=== PATIENT | male | born 1960 | race Caucasian/White ===

== ENCOUNTER 2022-02-01 15:04 | Observation (INO) ==
--- NOTE | 2022-02-01 15:36 | Emergency Department Note ---
Headache HPI General Chief Complaint: Headache Stated Complaint: headache Time Seen by Provider: 02/01/22 15:17 Mode of arrival: wheelchair History of Present Illness HPI Narrative: 61-year-old male, with past medical history of blindness, CVA, intracranial hemorrhage and as below presents with severe headache for 1 day associated with dizziness. Patient is not vaccinated for COVID. Patient has no chest pain, shortness of breath, abdominal pain, nausea/vomi ting/constipation/diarrhea, fever or chills. Related Data Home Medications Medication Instructions Recorded Confirmed acetaminophen 325 mg tablet 650 mg PO DAILY PRN Headache 01/29/22 02/02/22 famotidine 20 mg tablet 1 tab PO BID 01/29/22 02/02/22 amlodipine 5 mg tablet 1 tab PO QDAY 02/02/22 02/02/22 atorvastatin 40 mg tablet 1 tab PO QDAY 02/02/22 02/02/22 diazepam 5 mg tablet 5 mg PO TIDP PRN anxiety 02/02/22 02/02/22 oxycodone 10 mg tablet 1 tab PO Q4HP PRN Headache 02/02/22 02/02/22 Allergies Allergy/AdvReac Type Severity Reaction Status Date / Time No Known Drug Allergies Allergy Verified 02/02/22 06:50 Review of Systems ROS ROS Narrative: Narrative: All systems ED: reviewed and negative except as stated. FORMERLY [facility], [facility] Narrative Patient History Narrative: Narrative: Medical/Surgical/Family History All Active Problems (Updated 02/01/22 @ 17:04 by Ty Dsouza MD) Rhabdomyolysis (Acute) LULU (acute kidney injury) (Acute) Basilar artery occlusion (Acute) Acute headache (Acute) Occipital cerebral infarction (Acute) Intracranial hemorrhage (Acute) Chronic headache (Acute) Decreased hearing of both ears (Acute) Impacted cerumen of both ears (Acute) Rash and nonspecific skin eruption (Acute) Tachycardia (Acute) Elevated blood pressure reading (Acute) Encounter for examination required by Department of Transportation (DOT) (Acute) Chest pain (Acute) Social History Smoking Status: Current every day smoker Exam Narrative Narrative: Narrative: General General appearance: Present alert and in no apparent distress Head Head: Present atraumatic, normocephalic and other Eye Eye: Present visual dubon intact (Patient is blind in both eyes) Respiratory Respiratory: Present normal lung sounds bilaterally Cardiovascular Cardiovascular: Present regular rate, normal rhythm and normal heart sounds Adbominal Abdominal: Present soft and normal bowel sounds; Absent organomegaly Extremities Extremities: Present normal inspection and full ROM Neurological Neurological: Present alert, oriented X3 and normal gait; Absent motor sensory deficit Course Course Course Narrative: A CT scan of head without contrast was ordered. CBC, chemistry, PT, PTT, UA, an d COVID test was ordered. CT scan head c/[facility] NAME: Paul Kaplan [address] [place] [address] : 1960 [address] Service Date: 02/01/22 Report # [id number] [place] [address] Santo Obando M.D. MR #: [id number] Cat Scan Report Signed Ordering Physician:Ty Dsouza M.D. Date of Service:02/01/22 Procedure(s):CT head/brain wo con INDICATION: Headache. Hx of CVA COMPARISON: Previous brain CT scans dated 01/29/2022, 01/26/2022. Previous MRI scan dated 01/26/2022. Previous brain CTA dated 01/16/2022. TECHNIQUE: Axial noncontrast-enhanced images through the brain. Sagittally and coronally reformatted images. FINDINGS: Cerebral hemispheres:Again demonstrated are bilateral cerebral infarctions. These involve the posterior temporal lobes, occipital lobes, and parietal lobes bilaterally. Infarctions are in a posterior cerebral artery distribution. Previous CTA does not demonstrate posterior cerebral artery occlusion. No dural sinus or deep venous thrombosis are identified. Etiology of the bilateral posterior cerebral artery territory infarctions is not certain. There is hemorrhage with in the infarctions, hemorrhage has increased since 01/26/2022 but is unchanged since 01/29/2022. There is no significant mass effect. No evidence for uncal herniation. Basilar cisterns are open. There is no acute hydrocephalus. Brainstem and cerebellum:No intra-axial abnormality Extra-axial:There is a 9 mm anterior communicating artery aneurysm. There is no perianeurysmal hemorrhage. No subarachnoid hemorrhage. There is no subdural or epidural hematoma. No evidence for ruptured aneurysm. Calvarial:No calvarial fracture. No lytic lesion Temporal bones are negative. No destructive lesions Soft tissue, orbits, sinuses:Orbits and visualized facial soft tissues and paranasal sinuses are negative IMPRESSION: 1. Bilateral posterior territory infarctions involving the parietal, posterior temporal, and occipital lobes bilaterally 2. Hemorrhagic infarctions, unchanged since 01/29/2022 3. No significant mass effect. No uncal herniation. 4. No acute hydrocephalus. 5. 9 mm anterior communicating artery aneurysm. There is no subarachnoid hemorrhage. The exam was performed using radiation dose optimization techniques including, but not limited to, automated exposure control, adjustment of the mA and/or kV according to patient size and use of iterative reconstruction technique. Interpreted and Authenticated by: Santo Obando 02/01/22 14 14 Nurse Reviewer: <Electronically signed by Santo Obando M.D. in [place]> 02/01/221623 CC: Ty Dsouza M.D.; Jerrod Pierce; Santo Obando M.D.~ Will call [place] to transfer patient as discussed with patients brother. Vital Signs Vital signs: Vital Signs Temperature 97.7 F 02/01/22 15:05 Pulse Rate 87 02/01/22 15:05 Respiratory Rate 16 02/01/22 15:05 Blood Pressure 169/105 02/01/22 15:05 Pulse Oximetry (%) 98 02/01/22 15:05 Oxygen Delivery Method 02/01/22 15:05 Temperature 98.6 F 02/02/22 15:57 Pulse Rate 86 02/02/22 15:57 Respiratory Rate 17 02/02/22 15:57 Blood Pressure 139/90 02/02/22 15:57 Pulse Oximetry (%) 99 02/02/22 15:57 Oxygen Delivery Method 02/02/22 02:00 [facility] MDM Narrative Medical decision making narrative: Narrative: Lab Data Result diagrams: 02/01/22 15:30 02/01/22 15:30 Labs: Lab Results 02/01/22 02/01/22 02/01/22 Range/Units 15:16 15:30 15:30 WBC 8.4 (4.5-11.0) K/mcL RBC 5.02 (4.63-6.08) M/mcL Hgb 16.6 (13.7-17.5) g/dL Hct 48.3 (40.1-51.0) % MCV 96.2 (80.0-100.0) fL MCH 33.1 (26.0-34.0) pg MCHC 34.4 (31.0-36.0) g/dL RDW 12.6 (11.5-14.5) % Plt Count 396 (140-440) K/mcL MPV 9.9 (7.4-10.4) fL Seg Neutrophils % 72 (38-78) % Lymphocytes % 20 (15-49) % Monocytes % (Manual) 6 (1-12) % Eosinophils % (Manual) 1 (0-7) % Reactive Lymphocytes 1 (0-2) % Platelet Estimate Normal (Normal) RBC Morphology Normal (Normal) PT 13.0 (11.9-14.5) sec INR 0.9 (0.9-1.1) APTT 31.4 (20.0-37.0) sec Sodium (133-145) mmol/L Potassium (3.3-5.1) mmol/L Chloride (96-108) mmol/L Carbon Dioxide (22-30) mmol/L Anion Gap (8.0-16.0) BUN (8-23) mg/dL Creatinine (0.7-1.2) mg/dL POC Creatinine 0.9 (0.6-1.2) GFR Calculation Glucose (70-105) mg/dL Calcium (8.6-10.4) mg/dL Total Bilirubin (0.1-1.0) mg/dL AST (<40) U/L ALT (<40) U/L Alkaline Phosphatase (39-117) U/L Total Protein (5.9-8.4) gm/dL Albumin (3.2-5.2) gm/dL Globulin (2.2-3.7) gm/dL Albumin/Globulin Ratio (1.0-2.3) 02/01/22 Range/Units 15:30 WBC (4.5-11.0) K/mcL RBC (4.63-6.08) M/mcL Hgb (13.7-17.5) g/dL Hct (40.1-51.0) % MCV (80.0-100.0) fL MCH (26.0-34.0) pg MCHC (31.0-36.0) g/dL RDW (11.5-14.5) % Plt Count (140-440) K/mcL MPV (7.4-10.4) fL Seg Neutrophils % (38-78) % Lymphocytes % (15-49) % Monocytes % (Manual) (1-12) % Eosinophils % (Manual) (0-7) % Reactive Lymphocytes (0-2) % Platelet Estimate (Normal) RBC Morphology (Normal) PT (11.9-14.5) sec INR (0.9-1.1) APTT (20.0-37.0) sec Sodium 139 (133-145) mmol/L Potassium 4.0 (3.3-5.1) mmol/L Chloride 102 (96-108) mmol/L Carbon Dioxide 29 (22-30) mmol/L Anion Gap 8.0 (8.0-16.0) BUN 14 (8-23) mg/dL Creatinine 0.8 (0.7-1.2) mg/dL POC Creatinine (0.6-1.2) GFR Calculation 95 Glucose 95 (70-105) mg/dL Calcium 9.9 (8.6-10.4) mg/dL Total Bilirubin 0.7 (0.1-1.0) mg/dL AST 18 (<40) U/L ALT 24 (<40) U/L Alkaline Phosphatase 136 H (39-117) U/L Total Protein 7.0 (5.9-8.4) gm/dL Albumin 4.0 (3.2-5.2) gm/dL Globulin 3.0 (2.2-3.7) gm/dL Albumin/Globulin Ratio 1.3 (1.0-2.3) ED POC Tests ED POC Tests: MIGUE - SARS Antigen Negative Discharge Plan Patient/Caregiver Discharge Instructions Pt seen by FORENSIC ECONOMIST/PA only: No Clinical Impression: Occipital cerebral infarction, Acute headache Activity: increase activity as tolerated Patient Disposition: Xfer As Outpt/Obs ([facility]) Condition: Fair Discharge Date/Time: 02/01/22 20:17
[2022-02-01 16:16] LABS: Hematocrit 48.3 % (40.1-51.0); Hemoglobin 16.6 g/dL (13.7-17.5); INR 0.9 (0.9-1.1); Mean Cell Volume 96.2 fL (80.0-100.0); Mean Corpuscular HGB Conc 34.4 g/dL (31.0-36.0); Mean Platelet Volume 9.9 fL (7.4-10.4); Partial Thromboplastin Time 31.4 sec (20.0-37.0); Platelet Count 396 K/mcL (140-440); RBC 5.02 M/mcL (4.63-6.08); Red Cell Distribution Width 12.6 % (11.5-14.5); WBC 8.4 K/mcL (4.5-11.0)
[2022-02-01 16:18] LABS: ALT/SGPT 24 U/L (<40); AST/SGOT 18 U/L (<40); Albumin/Globulin Ratio 1.3 (1.0-2.3); Alkaline Phosphatase 136 U/L (39-117); Bilirubin,Total 0.7 mg/dL (0.1-1.0); Blood Urea Nitrogen 14 mg/dL (8-23); Calcium 9.9 mg/dL (8.6-10.4); Carbon Dioxide 29 mmol/L (22-30); Chloride 102 mmol/L (96-108); Glomerular Filtration Rate 95; Glucose 95 mg/dL (70-105)
--- NOTE | 2022-02-01 16:28 | Cat Scan Report ---
INDICATION: Headache. Hx of CVA COMPARISON: Previous brain CT scans dated 01/29/2022, 01/26/2022. Previous MRI scan dated 01/26/2022. Previous brain CTA dated 01/16/2022. TECHNIQUE: Axial noncontrast-enhanced images through the brain. Sagittally and coronally reformatted images. FINDINGS: Cerebral hemispheres:Again demonstrated are bilateral cerebral infarctions. These involve the posterior temporal lobes, occipital lobes, and parietal lobes bilaterally. Infarctions are in a posterior cerebral artery distribution. Previous CTA does not demonstrate posterior cerebral artery occlusion. No dural sinus or deep venous thrombosis are identified. Etiology of the bilateral posterior cerebral artery territory infarctions is not certain. There is hemorrhage with in the infarctions, hemorrhage has increased since 01/26/2022 but is unchanged since 01/29/2022. There is no significant mass effect. No evidence for uncal herniation. Basilar cisterns are open. There is no acute hydrocephalus. Brainstem and cerebellum:No intra-axial abnormality Extra-axial:There is a 9 mm anterior communicating artery aneurysm. There is no perianeurysmal hemorrhage. No subarachnoid hemorrhage. There is no subdural or epidural hematoma. No evidence for ruptured aneurysm. Calvarial:No calvarial fracture. No lytic lesion Temporal bones are negative. No destructive lesions Soft tissue, orbits, sinuses:Orbits and visualized facial soft tissues and paranasal sinuses are negative IMPRESSION: 1. Bilateral posterior territory infarctions involving the parietal, posterior temporal, and occipital lobes bilaterally 2. Hemorrhagic infarctions, unchanged since 01/29/2022 3. No significant mass effect. No uncal herniation. 4. No acute hydrocephalus. 5. 9 mm anterior communicating artery aneurysm. There is no subarachnoid hemorrhage. The exam was performed using radiation dose optimization techniques including, but not limited to, automated exposure control, adjustment of the mA and/or kV according to patient size and use of iterative reconstruction technique. Interpreted and Authenticated by: Santo Obando 02/01/22
[2022-02-01 16:49] LABS: Eosinophils % (Manual) 1 % (0-7); Lymphocytes % 20 % (15-49); Monocytes % (Manual) 6 % (1-12); Platelet Estimate NORMAL (Normal); RBC Morphology NORMAL (Normal); Reactive Lymphocytes 1 % (0-2); Segmented Neutrophils % 72 % (38-78)
--- NOTE | 2022-02-01 18:46 | Emergency Department Note ---
Course Course Course Narrative: I assumed care from Dr. Dsouza. Initial plan was to transfer patient to outside facility with neurology and neurosurgery specialties. I did speak with Dr. Abran Irvin, neurosurgeon from [facility], who recommends the following regiment: *Discontinue aspirin *Repeat head CT without contrast at 12 and 24 hours. If there is no bleed on either those patient will be discharged home. If there is increase in bleeding on either those patient should be transferred in their facility should be contacted *Keep blood pressure below 160 systolically *If head CT at 12 and 24 hours show no change patient should have an outpatient CT of the head without contrast 3 days postdischarge Case was discussed with hospitalist with the above recommendation and he has graciously accepted patient to be admitted to our facility. Plan was discussed with the patient and he is in agreement with plan. Vital Signs Vital signs: Vital Signs Temperature 97.7 F 02/01/22 15:05 Pulse Rate 87 02/01/22 15:05 Respiratory Rate 16 02/01/22 15:05 Blood Pressure 169/105 02/01/22 15:05 Pulse Oximetry (%) 98 02/01/22 15:05 Temperature 97.7 F 02/01/22 15:05 Pulse Rate 84 02/01/22 18:16 Respiratory Rate 16 02/01/22 15:05 Blood Pressure 148/98 02/01/22 18:16 Pulse Oximetry (%) 99 02/01/22 18:16 [facility] MDM Narrative Medical decision making narrative: Narrative: Lab Data Result diagrams: 02/01/22 15:30 02/01/22 15:30 Labs: Lab Results 02/01/22 02/01/22 02/01/22 Range/Units 15:16 15:30 15:30 WBC 8.4 (4.5-11.0) K/mcL RBC 5.02 (4.63-6.08) M/mcL Hgb 16.6 (13.7-17.5) g/dL Hct 48.3 (40.1-51.0) % MCV 96.2 (80.0-100.0) fL MCH 33.1 (26.0-34.0) pg MCHC 34.4 (31.0-36.0) g/dL RDW 12.6 (11.5-14.5) % Plt Count 396 (140-440) K/mcL MPV 9.9 (7.4-10.4) fL Seg Neutrophils % 72 (38-78) % Lymphocytes % 20 (15-49) % Monocytes % (Manual) 6 (1-12) % Eosinophils % (Manual) 1 (0-7) % Reactive Lymphocytes 1 (0-2) % Platelet Estimate Normal (Normal) RBC Morphology Normal (Normal) PT 13.0 (11.9-14.5) sec INR 0.9 (0.9-1.1) APTT 31.4 (20.0-37.0) sec Sodium (133-145) mmol/L Potassium (3.3-5.1) mmol/L Chloride (96-108) mmol/L Carbon Dioxide (22-30) mmol/L Anion Gap (8.0-16.0) BUN (8-23) mg/dL Creatinine (0.7-1.2) mg/dL POC Creatinine 0.9 (0.6-1.2) GFR Calculation Glucose (70-105) mg/dL Calcium (8.6-10.4) mg/dL Total Bilirubin (0.1-1.0) mg/dL AST (<40) U/L ALT (<40) U/L Alkaline Phosphatase (39-117) U/L Total Protein (5.9-8.4) gm/dL Albumin (3.2-5.2) gm/dL Globulin (2.2-3.7) gm/dL Albumin/Globulin Ratio (1.0-2.3) 02/01/22 Range/Units 15:30 WBC (4.5-11.0) K/mcL RBC (4.63-6.08) M/mcL Hgb (13.7-17.5) g/dL Hct (40.1-51.0) % MCV (80.0-100.0) fL MCH (26.0-34.0) pg MCHC (31.0-36.0) g/dL RDW (11.5-14.5) % Plt Count (140-440) K/mcL MPV (7.4-10.4) fL Seg Neutrophils % (38-78) % Lymphocytes % (15-49) % Monocytes % (Manual) (1-12) % Eosinophils % (Manual) (0-7) % Reactive Lymphocytes (0-2) % Platelet Estimate (Normal) RBC Morphology (Normal) PT (11.9-14.5) sec INR (0.9-1.1) APTT (20.0-37.0) sec Sodium 139 (133-145) mmol/L Potassium 4.0 (3.3-5.1) mmol/L Chloride 102 (96-108) mmol/L Carbon Dioxide 29 (22-30) mmol/L Anion Gap 8.0 (8.0-16.0) BUN 14 (8-23) mg/dL Creatinine 0.8 (0.7-1.2) mg/dL POC Creatinine (0.6-1.2) GFR Calculation 95 Glucose 95 (70-105) mg/dL Calcium 9.9 (8.6-10.4) mg/dL Total Bilirubin 0.7 (0.1-1.0) mg/dL AST 18 (<40) U/L ALT 24 (<40) U/L Alkaline Phosphatase 136 H (39-117) U/L Total Protein 7.0 (5.9-8.4) gm/dL Albumin 4.0 (3.2-5.2) gm/dL Globulin 3.0 (2.2-3.7) gm/dL Albumin/Globulin Ratio 1.3 (1.0-2.3) ED POC Tests ED POC Tests: MIGUE - SARS Antigen Negative Discharge Plan Patient/Caregiver Discharge Instructions Pt seen by REELER OPERATOR/PA only: No Clinical Impression: Occipital cerebral infarction, Acute headache Patient Disposition: Xfer As Outpt/Obs ([facility]) Condition: Fair Follow up with: Jerrod Pierce ARNP [Primary Care Provider] - Prescriptions: No Action atorvastatin 40 mg tablet 1 tab PO QDAY 0RF acetaminophen 325 mg Tablet 650 mg PO DAILY PRN (Reason: Headache) 0RF nicotine 14 mg/24 hr patch 24 hour 1 patch topical QDAY 0RF famotidine 20 mg tablet 1 tab PO BID 0RF aspirin [Children's Aspirin] 81 mg tablet,chewable 81 mg PO DAILY 0RF oxycodone 10 mg 5 mg PO Q4H PRN (Reason: Pain) 0RF amlodipine 5 mg Tablet 5 mg PO DAILY 0RF diazepam [Valium] 5 mg tablet 5 mg PO TID PRN (Reason: headache) Qty: 12 0RF diazepam 5 mg tablet 5 mg PO TID PRN (Reason: anxiety) Qty: 12 0RF
[2022-02-01] MEDS ORDERED: ACETAMINOPHEN 500 MG TABLET PO ONE (18:51)
[2022-02-01] MEDS ORDERED: diphenhydrAMINE 50 MG/ML VIAL IV ONE (18:52)
--- NOTE | 2022-02-01 19:06 | Internal Med History&Physical ---
HPI History of Present Illness Patient information: Note initiated : 02/01/22 at 6:58 pm Service Date, if different from initiated Date: [] Patient: Paul Kaplan 61 y/o M admitted on for headache. Chief Complaint: [] History of present illness: Mr. Kaplan is a 61 year old M Presents the ED with headache with history of stroke and subsequent hemorrhagic transformation. Patient presented initially to the ED January 16 for blindness and found to have large infarcts involving both occipital lobes. Also found to have intracerebral aneurysm and rhabdo. Patient was transferred to [place]. Presented back to the ED January 26 for headache and found to have worsening occipital lobe infarct with hemorrhage and worsening left thalamic infarct. Patient was transferred back up to [place] Patient presented back on January 29 with headache. Patient was evaluated in the ED and discharged home. Patient presented back to the ED today for headache. Case was discussed with his [place] neurosurgeon who recommended: *Discontinue aspirin *Repeat head CT without contrast at 12 and 24 hours. If there is no bleed on either those patient will be discharged home. If there is increase in bleeding on either those patient should be transferred in their facility should be contacted *Keep blood pressure below 160 systolically *If head CT at 12 and 24 hours show no change patient should have an outpatient CT of the head without contrast 3 days postdischarge History of methamphetamine use status for a few weeks probably for his stroke occurred. Patient denies nausea/vomiting. Review of Systems: Pertinent positives as above. Denies fever/chills/nausea/vomiting/chest or abdominal pain/cough/dyspnea/diarrhea. Remaining 10 point review of system reviewed negative PFSH PFSH All Active Problems (Updated 02/01/22 @ 17:04 by Ty Dsouza MD) Rhabdomyolysis (Acute) LULU (acute kidney injury) (Acute) Basilar artery occlusion (Acute) Acute headache (Acute) Occipital cerebral infarction (Acute) Intracranial hemorrhage (Acute) Chronic headache (Acute) Decreased hearing of both ears (Acute) Impacted cerumen of both ears (Acute) Rash and nonspecific skin eruption (Acute) Tachycardia (Acute) Elevated blood pressure reading (Acute) Encounter for examination required by Department of Transportation (DOT) (Acute) Chest pain (Acute) MEDS/ALLERGIES Home Medications and Allergies Home Medications Medication Instructions Recorded Confirmed Type acetaminophen 325 mg tablet 650 mg PO DAILY PRN 01/29/22 01/29/22 History amlodipine 5 mg tablet 5 mg PO DAILY 01/29/22 01/29/22 History aspirin 81 mg chewable tablet 81 mg PO DAILY 01/29/22 01/29/22 History (Children's Aspirin) atorvastatin 40 mg tablet 1 tab PO QDAY 01/29/22 01/29/22 History diazepam 5 mg tablet (Valium) 5 mg PO TID PRN #12 tab 01/29/22 Rx famotidine 20 mg tablet 1 tab PO BID 01/29/22 01/29/22 History nicotine 14 mg/24 hr daily 1 patch TOPICAL QDAY 01/29/22 01/29/22 History transdermal patch oxycodone 5 mg PO Q4H PRN 01/29/22 01/29/22 History diazepam 5 mg tablet 5 mg PO TID PRN #12 tab 01/31/22 Rx Allergies Allergy/AdvReac Type Severity Reaction Status Date / Time No Known Drug Allergies Allergy Verified 02/01/22 15:09 EXAM Constitutional Vitals: Temp Pulse Resp BP Pulse Ox 97.7 F 86 16 140/90 99 02/01/22 15:05 02/01/22 18:46 02/01/22 15:05 02/01/22 18:46 02/01/22 18:46 Exam: General: Alert, Awake, No acute Distress Eyes/N/T: pt blind PERRL, dry MM Head/Neck: neck supple, normocephalic atraumatic CV: RRR, No murmurs, normal s1/s2 Pulm: Clear b/l, no wheezing/rhonchi/rales Abd: soft, nontender, +BS x4 Ext: no clubbing/cyanosis/edema Neuro: Alert, no focal deficits, moves all extremities, CN 2-12 grossly intact, symmetrical strength b/l upper/lower, sensations intact b/l upper/lower Skin: warm/dry DATA Data Completed and Pending Labs: Labs from last 24 hours 02/01/22 02/01/22 02/01/22 15:30 15:30 15:30 WBC 8.4 RBC 5.02 Hgb 16.6 Hct 48.3 MCV 96.2 MCH 33.1 MCHC 34.4 RDW 12.6 Plt Count 396 MPV 9.9 Seg Neutrophils % 72 Lymphocytes % 20 Monocytes % (Manual) 6 Eosinophils % (Manual) 1 Reactive Lymphocytes 1 Platelet Estimate Normal RBC Morphology Normal PT 13.0 INR 0.9 APTT 31.4 Sodium 139 Potassium 4.0 Chloride 102 Carbon Dioxide 29 Anion Gap 8.0 BUN 14 Creatinine 0.8 POC Creatinine GFR Calculation 95 Glucose 95 Calcium 9.9 Total Bilirubin 0.7 AST 18 ALT 24 Alkaline Phosphatase 136 H Total Protein 7.0 Albumin 4.0 Globulin 3.0 Albumin/Globulin Ratio 1.3 02/01/22 15:16 WBC RBC Hgb Hct MCV MCH MCHC RDW Plt Count MPV Seg Neutrophils % Lymphocytes % Monocytes % (Manual) Eosinophils % (Manual) Reactive Lymphocytes Platelet Estimate RBC Morphology PT INR APTT Sodium Potassium Chloride Carbon Dioxide Anion Gap BUN Creatinine POC Creatinine 0.9 GFR Calculation Glucose Calcium Total Bilirubin AST ALT Alkaline Phosphatase Total Protein Albumin Globulin Albumin/Globulin Ratio A/P Narrative A/P Narrative: A: *PORRAS(frontal): *Recent b/l CVA & subsequent hemorrhagic conversion in December: resultant blindness *Substance abuse (methamphetamine): *HTN: *Anxiety: *GERD: *Tobacco abuse: P: -per Neurology > *Discontinue aspirin *Repeat head CT without contrast at 12 and 24 hours. If there is no bleed on either those patient will be discharged home. If there is increase in bleeding on either those patient should be transferred in their facility should be contacted *Keep blood pressure below 160 systolically *If head CT at 12 and 24 hours show no change patient should have an outpatient CT of the head without contrast 3 days postdischarge - -cont statin -Substance abuse counseling -Smoking cessation counseling > 3 minutes -ppx: SCD / home H2 Time Spent With Patient Time: Total time spent is greater than 50% in coordination of care (as documented) at patient's floor/unit and/or counseling patient: Total time spent with greater than 50% in coordination of care (as documented) at patient's floor/unit and/or counseling patient:: Greater than 70 minutes
[2022-02-01] MEDS ORDERED: SENNOSIDES 1 TABLET PO PRN (20:24)
[2022-02-01] MEDS ORDERED: hydrALAZINE 20 MG/ML VIAL IV PRN (20:24)
[2022-02-01] MEDS ORDERED: POTASSIUM CHLORIDE 40 MEQ in DEXTROSE 5% IN WATER 500 ML IV PRN (20:24)
[2022-02-01] MEDS ORDERED: DIAZEPAM 5 MG TABLET PO PRN (20:24)
[2022-02-01] MEDS ORDERED: ACETAMINOPHEN 325 MG TABLET PO PRN (20:24)
[2022-02-01] MEDS ORDERED: morphine 4 MG/ML VIAL IV PRN (20:24)
[2022-02-01] MEDS ORDERED: POTASSIUM CHLORIDE 20 MEQ TABLET PO PRN ×2 (20:24)
[2022-02-01] MEDS ORDERED: IPRATROPIUM/ALBUTEROL 3 ML AMPUL.NEB NEB PRN (20:24)
[2022-02-01] MEDS ORDERED: POLYETHYLENE GLYCOL 3350 17 GM PACKET PO PRN (20:24)
[2022-02-01] MEDS ORDERED: MAGNESIUM SULFATE 2 GM/50 ML BAG IV PRN (20:24)
[2022-02-01] MEDS ORDERED: ONDANSETRON 4 MG/2 ML VIAL IV PRN (20:24)
[2022-02-01] MEDS ORDERED: LABETALOL 5 MG/ML ML IV PRN (20:24)
[2022-02-01] MEDS ORDERED: 0.9 % SODIUM CHLORIDE 1,000 ML IV SCH (20:24)
--- NOTE | 2022-02-01 20:43 | Discharge Summary ---
Discharge Provider Provider IMPORTANT FOLLOW-UP INFORMATION FOR PCP: Patient information: Note initiated : 02/01/22 at 8:40 pm Service Date, if different from initiated Date: [] Patient: Paul Kaplan 61 y/o M admitted on 02/01/22 for headache. Chief Complaint: [] Date of admission: 02/01/22 20:17 Discharge date: 02/02/22 Primary care physician: ANGELES Nixon Consults: 02/01/22 18:28 Consult to Physician [CONS] Stat Comment: Consulting Provider: Quan Altman Reason For Exam: Physician to Consult COURSE Hospital Course Hospital course: History of present illness: Mr. Kaplan is a 61 year old M Presents the ED with headache with history of stroke and subsequent hemorrhagic transformation. Patient presented initially to the ED January 16 for blindness and found to have large infarcts involving both occipital lobes. Also found to have intracerebral aneurysm and rhabdo. Patient was transferred to [place]. Presented back to the ED January 26 for headache and found to have worsening occipital lobe infarct with hemorrhage and worsening left thalamic infarct. Patient was transferred back up to [place] Patient presented back on January 29 with headache. Patient was evaluated in the ED and discharged home. Patient presented back to the ED today for headache. Case was discussed with his [place] neurosurgeon who recommended: *Discontinue aspirin *Repeat head CT without contrast at 12 and 24 hours. If there is no bleed on either those patient will be discharged home. If there is increase in bleeding on either those patient should be transferred in their facility should be contacted *Keep blood pressure below 160 systolically *If head CT at 12 and 24 hours show no change patient should have an outpatient CT of the head without contrast 3 days postdischarge History of methamphetamine use status for a few weeks probably for his stroke occurred. Patient denies nausea/vomiting. CT brain at 12 and 24-hour are both stable and show no changes. Patient will discharge. 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 If there is no bleed on either those patient will be discharged home. If there is increase in bleeding on either those patient should be transferred in their facility should be contacted *Keep blood pressure below 160 systolically *If head CT at 12 and 24 hours show no change patient should have an outpatient CT of the head without contrast 3 days postdischarge -cont statin -Substance abuse counseling -Smoking cessation counseling Discharge diagnosis: Headache history of recent stroke with hemorrhagic conversion Time Spent with Patient Time attestation: Total time spent providing and/or coordinating discharge services: Time spent: Greater than 30 minutes EXAM Constitutional Vitals: Temp Pulse Resp BP Pulse Ox 97.7 F 81 16 132/90 99 02/01/22 15:05 02/01/22 19:46 02/01/22 15:05 02/01/22 19:46 02/01/22 19:46 Discharge Data Data Completed and Pending Labs on day of discharge: Labs from last 24 hours 02/01/22 02/01/22 02/01/22 15:30 15:30 15:30 WBC 8.4 RBC 5.02 Hgb 16.6 Hct 48.3 MCV 96.2 MCH 33.1 MCHC 34.4 RDW 12.6 Plt Count 396 MPV 9.9 Seg Neutrophils % 72 Lymphocytes % 20 Monocytes % (Manual) 6 Eosinophils % (Manual) 1 Reactive Lymphocytes 1 Platelet Estimate Normal RBC Morphology Normal PT 13.0 INR 0.9 APTT 31.4 Sodium 139 Potassium 4.0 Chloride 102 Carbon Dioxide 29 Anion Gap 8.0 BUN 14 Creatinine 0.8 POC Creatinine GFR Calculation 95 Glucose 95 Calcium 9.9 Total Bilirubin 0.7 AST 18 ALT 24 Alkaline Phosphatase 136 H Total Protein 7.0 Albumin 4.0 Globulin 3.0 Albumin/Globulin Ratio 1.3 02/01/22 15:16 WBC RBC Hgb Hct MCV MCH MCHC RDW Plt Count MPV Seg Neutrophils % Lymphocytes % Monocytes % (Manual) Eosinophils % (Manual) Reactive Lymphocytes Platelet Estimate RBC Morphology PT INR APTT Sodium Potassium Chloride Carbon Dioxide Anion Gap BUN Creatinine POC Creatinine 0.9 GFR Calculation Glucose Calcium Total Bilirubin AST ALT Alkaline Phosphatase Total Protein Albumin Globulin Albumin/Globulin Ratio Discharge Plan Patient/Caregiver Discharge Instructions Activity: increase activity as tolerated Diet: Regular Diet Instructions: Intracerebral Hemorrhage (GEN), Self Care Measures After a Stroke (GEN) Activity Restrictions/Additional Instructions: Follow-up with your neurologist in 3 to 10 days for headaches and recent stroke. Aspirin and Plavix held until follow-up with neurologist and PCP. Increase activity as tolerated, continue with a regular diet. Follow up with your primary child care worker as scheduled. Bring your hard copy script with you to [facility] for your outpatient CT Scan of head without contrast. There have not been any changes to your medications. This discharge packet is provided to you to help keep you informed about your care. We want to ensure you get everything you need when you go home. You will also be receiving a call from us in a few days to follow up with you and see how you are doing since your discharge. This gives us a chance to listen to any concerns you maybe experiencing since you were discharged or any additional needs you may have, as well as providing us feedback on your care experience. We strive to always provide excellent care and thank you for your feedback and for choosing [facility]. Prescriptions: Continued acetaminophen 325 mg Tablet 650 mg PO DAILY PRN (Reason: Headache) 0RF famotidine 20 mg tablet 1 tab PO BID 0RF atorvastatin 40 mg tablet 1 tab PO QDAY 0RF amlodipine 5 mg tablet 1 tab PO QDAY 0RF diazepam 5 mg tablet 5 mg PO TIDP PRN (Reason: anxiety) 0RF oxycodone 10 mg tablet 1 tab PO Q4HP PRN (Reason: Headache) 0RF Discontinued nicotine 14 mg/24 hr patch 24 hour 1 patch topical QDAY 0RF clopidogrel 75 mg tablet 1 tab PO QDAY 0RF Rx Instructions: 15 tablets prescribed aspirin [Children's Aspirin] 81 mg tablet,chewable 81 mg PO DAILY 0RF Other Ambulatory Orders: CT head/brain wo con (Routine) Timeframe: 3 Days Facility: [facility] - Location: Radiology Ordered By: Quan Altman Follow Up Plan Follow up with: Jerrod Pierce ARNP [Primary Care Provider] - 02/03/22 10:40 am (Please continue with your currently scheduled appointment) Patient Disposition: Home, Self-Care Prognosis: Fair Overall status at discharge: patient is progressing back to baseline Discharge Orders: Discharge Order (Routine); Ordered 02/02/22 Ordered By: Quan Altman
[2022-02-01] MEDS ORDERED: ATORVASTATIN 40 MG TABLET PO SCH (21:00)
[2022-02-01] MEDS: BUTALB/ACETAMINOPHEN/CAFFEINE 1 TABLET PO PRN (21:15)
[2022-02-01] MEDS: DOCUSATE SODIUM 100 MG CAPSULE PO SCH (21:16)
[2022-02-01] MEDS: 0.9 % SODIUM CHLORIDE 10 ML SYRINGE IV SCH (21:18)
[2022-02-01] MEDS: FAMOTIDINE 20 MG TABLET PO SCH (21:18)
[2022-02-02] MEDS: 0.9 % SODIUM CHLORIDE 10 ML SYRINGE IV SCH ×2 (06:01→15:00)
--- NOTE | 2022-02-02 06:27 | Cat Scan Report ---
INDICATION: f/u to compare to 02/01 image COMPARISON: Previous CT scan dated 02/01/2022. Prior examinations dated 01/29/2022, 01/26/2022, 01/17/2022, 01/16/2022. Previous MRI scans dated 01/26/2022, 01/16/2022 TECHNIQUE: Axial noncontrast-enhanced images through the brain. Sagittally and coronally reformatted images. FINDINGS: Cerebral hemispheres:Bilateral hemorrhagic cerebral infarction involving the parietal lobes, posterior temporal lobes, and occipital lobes in both hemispheres. There is hemorrhage within cerebral infarction bilaterally. Hemorrhagic infarction appears unchanged since 01/29/2022. Hemorrhage is increased since 01/26/2022 and hemorrhagic component is new since 01/17/2022. There is no significant mass effect. There is no acute hydrocephalus. No transfalcine or uncal herniation. There is no downward herniation through the tentorial notch. No new intra-axial abnormality. Brainstem and cerebellum:No intra-axial abnormality Extra-axial:Again demonstrated is blood pool within a 9 mm anterior communicating artery aneurysm. There is no perianeurysmal subarachnoid or intra-axial hemorrhage. No evidence for ruptured aneurysm. There is no subdural hematoma. Calvarial:No calvarial fracture. No lytic lesion Temporal bones are negative. No destructive lesions Soft tissue, orbits, sinuses:Orbits and visualized facial soft tissues and paranasal sinuses are negative IMPRESSION: 1. Bilateral hemorrhagic infarction involving the parietal lobes, posterior temporal lobes, and occipital lobes 2. No interval change since 02/01/2022, 01/29/2022 3. Stable anterior communicating artery aneurysm. No evidence for subarachnoid hemorrhage The exam was performed using radiation dose optimization techniques including, but not limited to, automated exposure control, adjustment of the mA and/or kV according to patient size and use of iterative reconstruction technique. Interpreted and Authenticated by: Santo Obando 02/02/22
[2022-02-02] MEDS: FAMOTIDINE 20 MG TABLET PO SCH (08:03)
[2022-02-02] MEDS: BUTALB/ACETAMINOPHEN/CAFFEINE 1 TABLET PO PRN (08:08)
[2022-02-02] MEDS: DOCUSATE SODIUM 100 MG CAPSULE PO SCH (08:22)
[2022-02-02] MEDS ORDERED: DIAZEPAM 5 MG TABLET PO PRN (08:50)
[2022-02-02] MEDS ORDERED: ACETAMINOPHEN (PP) 325MG TABLET (#50) PO PRN (08:50)
[2022-02-02] MEDS ORDERED: NON FORMULARY MEDICATION 1 DOSE MISCELL (Oxycodone 10 mg tablet) PO PRN (08:50)
[2022-02-02] MEDS ORDERED: FAMOTIDINE 20 MG TABLET PO SCH (09:00)
[2022-02-02] MEDS ORDERED: amLODIPine 5 MG TABLET PO SCH (09:00)
[2022-02-02] MEDS ORDERED: oxyCODONE HCL 5 MG TABLET PO PRN (09:00)
[2022-02-02] MEDS ORDERED: ATORVASTATIN 40 MG TABLET PO SCH (09:00)
[2022-02-02] MEDS ORDERED: NICOTINE 14 MG PATCH TOPICAL SCH (10:00)
--- NOTE | 2022-02-02 15:45 | Cat Scan Report ---
INDICATION: f/u to compare to 02/02 morning image COMPARISON: Previous brain CT scans dated 02/02/2022, [id number], 01/29/2022, 01/26/2022, 01/17/2022. Previous MRI scan dated 01/26/2022 TECHNIQUE: Axial noncontrast-enhanced images through the brain. Sagittally and coronally reformatted images. FINDINGS: Cerebral hemispheres:Hemorrhagic infarctions in the parietal, posterior temporal, and occipital lobes bilaterally. Appearance is unchanged since 02/02/2022, 02/01/2022, 01/29/2022. No new hemorrhagic abnormality. No new attenuation abnormality or localized mass effect. There is no midline shift. No herniation. There is no acute hydrocephalus. Brainstem and cerebellum:No intra-axial abnormality Extra-axial:9 mm anterior communicating artery aneurysm is again identified. No acute hemorrhage. No subarachnoid hemorrhage. There is no subdural hematoma. Calvarial:No calvarial fracture. No lytic lesion Temporal bones are negative. No destructive lesions Soft tissue, orbits, sinuses:Orbits and visualized facial soft tissues and paranasal sinuses are negative IMPRESSION: 1. Bilateral hemorrhagic infarctions, unchanged 2. Anterior communicating artery aneurysm. No subarachnoid hemorrhage The exam was performed using radiation dose optimization techniques including, but not limited to, automated exposure control, adjustment of the mA and/or kV according to patient size and use of iterative reconstruction technique. Interpreted and Authenticated by: Santo Obando 02/02/22
== END 2022-02-02 16:50 | disposition home or self-care (01) ==
LOC: ED 15:04 → ICU 20:17 → INTOOBSV 20:17
PROVIDERS: ADMIT Internal Medicine; ATTEND Internal Medicine